=== PATIENT | female | born 1940 | race Caucasian/White ===

== ENCOUNTER 2016-11-12 08:53 | Emergency (ER) | payer MEDICARE, OTHER, MEDICAID ==
--- NOTE | 2016-11-12 09:26 | RAD ---
Indication: Altered mental status. Resolved LEFT side facial droop. History of dementia and prior CVA. Hypertension. Comparison: August 13, 2011 CT. Technique: Noncontrast CT vertex of skull through foramen magnum. Report: Moderately severe prominence of the cerebral sulci and mild prominence of the cerebellar fissures with worsening compared with the prior exam. Extensive encephalomalacia involving the LEFT anterior and middle cerebral artery distributions consistent with an old infarct without significant interval change. 0.7 cm chronic lacunar infarct at the RIGHT thalamus. 1.8 x 1.8 cm chronic lacunar infarct at the LEFT thalamus and posterior limb of the internal capsule. Ex vacuo dilatation of the LEFT lateral ventricle without significant change. Generalized ventriculomegaly commensurate with degree of atrophy. No new region of reed matter white matter obscuration, intra or extra-axial hemorrhage, or mass effect. Unremarkable calvarium and skull base. Clear visualized paranasal sinuses and mastoid air spaces. Negative for scalp hematoma. IMPRESSION: 1. Extensive LEFT hemispheric encephalomalacia related to previous infarct. Additional chronic lacunar infarcts. 2. No compelling new region of reed matter white matter obscuration. Negative for intra or extra-axial hemorrhage or mass effect.
--- NOTE | 2016-11-12 09:27 | RAD ---
Indication: Altered mental status. Comparison: December 01, 2013 Technique: Upright AP 0905 hours Report: Suboptimal inspiration with resulting minimal crowding of the pulmonary markings. No alveolar consolidation, focal pulmonary lesion, pleural effusion, pneumothorax. The heart, pulmonary vasculature, and mediastinal contours are unremarkable. IMPRESSION: Low lung volumes with mild subsegmental atelectasis.
[2016-11-12 09:36] LABS: Hematocrit 44 % (35-47); Hemoglobin 14.1 g/dl (12.0-16.0); Mean Corpuscular HGB Conc 32 g/dl (31-36); Mean Corpuscular Hemoglobin 28 pg (27-31); Mean Corpuscular Volume 87 fL (80-97); Mean Platelet Volume 12 um3 (7.4-10.4); Red Blood Count 5.06 10^6/ul (4.0-5.4); Red Cell Distribution Width 13 % (10.5-15); White Blood Count 7.2 10^3/ul (3.5-10.8)
[2016-11-12 09:52] LABS: Albumin 3.6 g/dL (3.2-5.2); BUN/Creatinine Ratio 32.7 (8-20); Calcium 9.1 mg/dL (8.6-10.3); EGFR African American 159.2 (>60); EGFR Non-African American 123.8 (>60); Globulin 2.9 g/dL (2-4); Potassium 3.5 mmol/L (3.5-5.0); Total Bilirubin 0.2 mg/dL (0.2-1.0); Total Protein 6.5 g/dL (6.4-8.9)
[2016-11-12 09:54] LABS: Add Diff/Slide Review? Slide Review Added; Comments Flag Yes
[2016-11-12 11:18] LABS: Urine Bacteria 2+ (Absent); Urine Bilirubin Negative (Negative); Urine Glucose 3+(>=500 mg/dL) (Negative); Urine Nitrite Negative (Negative)
[2016-11-12 14:14] VITALS: BP 154/75
--- NOTE | 2016-11-12 17:58 | ED ---
Sydnie Rosario SooYoung, scribed for Noble Zaragoza MD on 11/12/16 at 0901 . Neurological HPI - HPI Summary HPI Summary: A 75 y/o F BRIAN presents to ED after possible stroke onset this AM. According to EMS, last known well time approx 0700. EMS states pt had a L-sided facial droop and caretakers at facility told them that she is not at her baseline, and is acting "odd." Upon arrival in ED, no obvious facial droop. Pert PMHx: TIA/ CVA. - History of Current Complaint Stated Complaint: AMS Time Seen by Provider: 11/12/16 08:53 Hx Obtained From: Patient, EMS, Medical Records Onset/Duration: Started hours ago, Still Present Timing: Constant - Allergy/Home Medications Allergies/Adverse Reactions: Allergies Allergy/AdvReac Type Severity Reaction Status Date / Time Sulfa Drugs Allergy Mild Headache Verified 11/12/16 10:02 Home Medications: Home Medications Acetaminophen SUPP* [Tylenol Supp*] 650 mg [place] Q4H PRN 11/12/16 [History Confirmed 11/12/16] Acetaminophen TAB* [Tylenol TAB*] 650 mg PO Q4H PRN 11/12/16 [History Confirmed 11/12/16] Atorvastatin* [Lipitor*] 10 mg PO BEDTIME 11/12/16 [History Confirmed 11/12/16] Bisacodyl SUPP* [Dulcolax Supp*] 10 mg [place] DAILY PRN 11/12/16 [History Confirmed 11/12/16] Brinzolamide 1% OPHTH BRIANNA(NF) [Azopt 1% OPHTH BRIANNA(NF)] 1 drop BOTH EYES BID [History Confirmed 11/12/16] Budesonide NEB* [Pulmicort NEB*] 0.5 mg INH DAILY 11/12/16 [History Confirmed ] Cholecalciferol [Vitamin D3] 50,000 unit PO MONTHLY 11/12/16 [History Confirmed 11/12/16] Dipyridamole/Aspirin 25/200* [Aggrenox 25/200*] 1 cap.er PO BID 11/12/16 [ History Confirmed 11/12/16] Divalproex Sprinkle CAP* [Depakote Sprinkle CAP*] 250 mg PO BID 11/12/16 [ History Confirmed 11/12/16] Hydrocodone/Acetamin 10/325(NF [[place] 10/325 (NF)] 1 tab PO BID 11/12/16 [ History Confirmed 11/12/16] Hydrocodone/Acetamin 10/325(NF [[place] 10/325 (NF)] 1 tab PO Q4H PRN 11/12/16 [ History Confirmed 11/12/16] Latanoprost 0.005%* [Xalatan 0.005%*] 1 drop BOTH EYES QPM 11/12/16 [History Confirmed 11/12/16] Losartan TAB* [Cozaar TAB*] 100 mg PO DAILY 11/12/16 [History Confirmed 11/12/16 ] Magnesium Hydroxide LIQ* [Milk of Magnesia LIQ*] 30 ml PO DAILY PRN 11/12/16 [ History Confirmed 11/12/16] Mirtazapine TAB* [Remeron TAB*] 15 mg PO BEDTIME 11/12/16 [History Confirmed ] Omeprazole CAP* [Prilosec CAP* 20 MG] 20 mg PO BID 11/12/16 [History Confirmed 11/12/16] Omeprazole CAP* [Prilosec CAP* 20 MG] 20 mg PO DAILY 11/12/16 [History Confirmed 11/12/16] Phenytoin SUSP(*) [Dilantin SUSP(*)] 300 mg PO BEDTIME 11/12/16 [History Confirmed 11/12/16] Polyethylene Glycol 3350* [Miralax*] 17 gm PO BID 11/12/16 [History Confirmed ] Sennosides-Docusate Sodium [Senokot S] 1 tab PO BID PRN 11/12/16 [History Confirmed 11/12/16] Sertraline* [Zoloft*] 125 mg PO DAILY 11/12/16 [History Confirmed 11/12/16] amLODIPine TAB* [Norvasc TAB*] 2.5 mg PO BEDTIME 11/12/16 [History Confirmed ] metFORMIN* [Glucophage 500 MG TAB *] 500 mg PO BID 11/12/16 [History Confirmed 11/12/16] PMH/Surg Hx/FS Hx/Imm Hx Previously Healthy: No Endocrine/Hematology History: Reports: Hx Diabetes Cardiovascular History: Reports: Hx Hypertension Respiratory History: Reports: Hx Asthma, Hx Chronic Bronchitis, Hx Pneumonia GI History: Reports: Other GI Disorders - reflux History: Reports: Other Problems/Disorders - recent UTI Musculoskeletal History: Reports: Hx Back Problems, Other Musculoskeletal History - osteo-arthritis, L ankle surgery x3, "back problems" Sensory History: Reports: Hx Contacts or Glasses, Hx Glaucoma Opthamlomology History: Reports: Hx Contacts or Glasses, Hx Glaucoma Neurological History: Reports: Hx Seizures, Other Neuro Impairments/Disorders - lasik surgery for cataracts and glaucoma - Surgical History Surgery Procedure, Year, and Place: right ankle 3 surgeries 1999, 2000, 2003 [place]. appemdectomy. hysterectomy 1973 - Family History Known Family History: Positive: Cardiac Disease, Diabetes, Other - pos: [place] - Social History Occupation: Retired Lives: Assisted Living Alcohol Use: None Substance Use Type: Reports: None Type: Cigarettes Length of Time of Smoking/Using Tobacco: 20 years Have You Smoked in the Last Year: No Review of Systems Negative: Fever Neurological: Other - pos: activing "odd", L facial droop according to EMS All Other Systems Reviewed And Are Negative: Yes Physical Exam Vital Signs On Initial Exam: Initial Vitals Temp Pulse Resp BP Pulse Ox 98.4 F 89 18 171/92 96 11/12/16 09:07 11/12/16 09:07 11/12/16 09:07 11/12/16 09:07 11/12/16 09:07 Diagnostics - Vital Signs Vital Signs Temp Pulse Resp BP Pulse Ox 11/12/16 14:25 98.2 F 11/12/16 14:00 78 13 154/75 98 11/12/16 13:30 79 14 170/76 97 11/12/16 13:00 78 13 157/80 98 11/12/16 12:30 79 14 171/77 97 11/12/16 12:00 80 13 170/83 98 11/12/16 11:30 80 13 170/85 98 11/12/16 11:00 81 15 173/80 97 11/12/16 10:30 82 14 170/85 93 11/12/16 10:00 84 13 175/91 94 11/12/16 09:30 86 13 169/89 95 11/12/16 09:22 87 15 171/91 96 11/12/16 09:13 90 17 96 11/12/16 09:07 98.4 F 89 18 171/92 96 - Laboratory Lab Results: Lab Results 11/12/16 11/12/16 11/12/16 Range/Units 09:22 09:25 09:25 WBC 7.2 (3.5-10.8) 10^3/ul RBC 5.06 (4.0-5.4) 10^6/ul Hgb 14.1 (12.0-16.0) g/dl Hct 44 (35-47) % MCV 87 (80-97) fL MCH 28 (27-31) pg MCHC 32 (31-36) g/dl RDW 13 (10.5-15) % Plt Count 93 L (150-450) 10^3/ul MPV 12 H (7.4-10.4) um3 Neut % (Auto) 54.6 (38-83) % Lymph % (Auto) 29.9 (25-47) % Cross % (Auto) 13.5 H (1-9) % Eos % (Auto) 1.4 (0-6) % Baso % (Auto) 0.6 (0-2) % Absolute Neuts (auto) 3.9 (1.5-7.7) 10^3/ul Absolute Lymphs (auto) 2.2 (1.0-4.8) 10^3/ul Absolute Monos (auto) 1.0 H (0-0.8) 10^3/ul Absolute Eos (auto) 0.1 (0-0.6) 10^3/ul Absolute Basos (auto) 0 (0-0.2) 10^3/ul Absolute Nucleated RBC 0.01 10^3/ul Nucleated RBC % 0.1 Hem Pathologist Commnt Pending INR (Anticoag Therapy) 1.11 (0.89-1.11) Sodium (133-145) mmol/L Potassium (3.5-5.0) mmol/L Chloride (101-111) mmol/L Carbon Dioxide (22-32) mmol/L Anion Gap (2-11) mmol/L BUN (6-24) mg/dL Creatinine (0.51-0.95) mg/dL Est GFR ( Amer) (>60) Est GFR (Non-Af Amer) (>60) BUN/Creatinine Ratio (8-20) Glucose (70-100) mg/dL POC Glucose (mg/dL) 423 H* (74-106) mg/dL Lactic Acid (0.5-2.0) mmol/L Calcium (8.6-10.3) mg/dL Total Bilirubin (0.2-1.0) mg/dL AST (13-39) U/L ALT (7-52) U/L Alkaline Phosphatase (34-104) U/L Troponin I (<0.04) ng/mL Total Protein (6.4-8.9) g/dL Albumin (3.2-5.2) g/dL Globulin (2-4) g/dL Albumin/Globulin Ratio (1-3) Urine Color Urine Appearance Urine pH (5-9) Ur Specific [place] (1.010-1.030) Urine Protein (Negative) Urine Ketones (Negative) Urine Blood (Negative) Urine Nitrate (Negative) Urine Bilirubin (Negative) Urine Urobilinogen (Negative) Ur Leukocyte Esterase (Negative) Urine WBC (Auto) (Absent) Urine RBC (Auto) (Absent) Ur Squamous Epith Cells (Absent) Urine Bacteria (Absent) Urine Glucose (Negative) 11/12/16 11/12/16 11/12/16 Range/Units 09:25 09:25 10:50 WBC (3.5-10.8) 10^3/ul RBC (4.0-5.4) 10^6/ul Hgb (12.0-16.0) g/dl Hct (35-47) % MCV (80-97) fL MCH (27-31) pg MCHC (31-36) g/dl RDW (10.5-15) % Plt Count (150-450) 10^3/ul MPV (7.4-10.4) um3 Neut % (Auto) (38-83) % Lymph % (Auto) (25-47) % Cross % (Auto) (1-9) % Eos % (Auto) (0-6) % Baso % (Auto) (0-2) % Absolute Neuts (auto) (1.5-7.7) 10^3/ul Absolute Lymphs (auto) (1.0-4.8) 10^3/ul Absolute Monos (auto) (0-0.8) 10^3/ul Absolute Eos (auto) (0-0.6) 10^3/ul Absolute Basos (auto) (0-0.2) 10^3/ul Absolute Nucleated RBC 10^3/ul Nucleated RBC % Hem Pathologist Commnt INR (Anticoag Therapy) (0.89-1.11) Sodium 142 (133-145) mmol/L Potassium 3.5 (3.5-5.0) mmol/L Chloride 104 (101-111) mmol/L Carbon Dioxide 29 (22-32) mmol/L Anion Gap 9 (2-11) mmol/L BUN 16 (6-24) mg/dL Creatinine 0.49 L (0.51-0.95) mg/dL Est GFR ( Amer) 159.2 (>60) Est GFR (Non-Af Amer) 123.8 (>60) BUN/Creatinine Ratio 32.7 H (8-20) Glucose 407 H (70-100) mg/dL POC Glucose (mg/dL) (74-106) mg/dL Lactic Acid 1.1 (0.5-2.0) mmol/L Calcium 9.1 (8.6-10.3) mg/dL Total Bilirubin 0.20 (0.2-1.0) mg/dL AST 10 L (13-39) U/L ALT 9 (7-52) U/L Alkaline Phosphatase 73 (34-104) U/L Troponin I 0.00 (<0.04) ng/mL Total Protein 6.5 (6.4-8.9) g/dL Albumin 3.6 (3.2-5.2) g/dL Globulin 2.9 (2-4) g/dL Albumin/Globulin Ratio 1.2 (1-3) Urine Color Yellow Urine Appearance Cloudy Urine pH 5.0 (5-9) Ur Specific [place] 1.029 (1.010-1.030) Urine Protein 2+(100 mg/dl) H (Negative) Urine Ketones 1+ H (Negative) Urine Blood 1+ H (Negative) Urine Nitrate Negative (Negative) Urine Bilirubin Negative (Negative) Urine Urobilinogen Negative (Negative) Ur Leukocyte Esterase 3+ H (Negative) Urine WBC (Auto) 3+(>20/hpf) H (Absent) Urine RBC (Auto) 3+(>10/hpf) H (Absent) Ur Squamous Epith Cells Present H (Absent) Urine Bacteria 2+ H (Absent) Urine Glucose 3+(>=500 mg/dl) H (Negative) Result Diagrams: 11/12/16 09:25 11/12/16 09:25 Lab Statement: Any lab studies that have been ordered have been reviewed, and results considered in the medical decision making process. - Radiology CXR Xray Interpretation: Positive (See Comments) - IMPRESSION: Low lung volumes with mild subsegmental atelectasis. Radiology Interpretation Completed By: Radiologist - CT Brain CT CT Interpretation: Positive (See Comments) CT Interpretation Completed By: Radiologist - IMPRESSION: 1. Extensive LEFT hemispheric encephalomalacia related to previous infarct. Additional chronic lacunar infarcts. 2. No compelling new region of reed matter white matter obscuration. Negative for intra or extra-axial hemorrhage or mass effect. - EKG 0922 Cardiac Rate: NL EKG Rhythm: Sinus Rhythm Course/Dx - Course Course Of Treatment: Dede Wasserman was reported to have had a left facial droop at the skilled nursing. She did not have any left-sided findings on neuro exam when she presented here and her W/U showed only an isolated high glucose and a likely UTI. She was D/C'd back to the [facility] to F/U with her PMD. She remained pleasant and nontoxic here. - Diagnoses Provider Diagnoses: UTI (urinary tract infection) - Physician Notifications Discussed Care of Patient With: Dr. Lobo, neuro; is OK with D/C pt Time Discussed With Above Provider: 11:47 Discharge - Discharge Plan Condition: Stable Disposition: HOME Prescriptions: Ciprofloxacin TAB* [Cipro Tab*] 500 mg PO BID #20 tab Patient Education Materials: Ciprofloxacin (By mouth) Referrals: David Jacob MD [Primary Care Provider] - The documentation as recorded by the Sydnie sr SooYoung accurately reflects the service I personally performed and the decisions made by me, Noble Zaragoza MD.
--- NOTE | 2016-11-14 08:35 | PN ---
Progress Note - Progress Note Note: urine culture preliminary grew e. coli patient placed on cipro in ED nothing further at this time will await sensitivities.
== END 2016-11-12 14:25 | disposition home or self-care (01) ==
LOC: ED 08:53
DX: N39.0 Urinary tract infection, site not specified (principal); Z86.73 Personal history of transient ischemic attack (TIA), and cerebral infarction without residual deficits; Z88.2 Allergy status to sulfonamides
CPT/HCPCS: 36415; 70450; 71010; 80053; 81003; 81015; 83605; 84484; 85025; 85060; 85610; 87077; 87086; 87186; 99283

== ENCOUNTER 2016-11-20 12:44 | Emergency (ER) | payer MEDICARE, OTHER, MEDICAID ==
[2016-11-20 14:08] LABS: Hematocrit 44 % (35-47); Hemoglobin 13.8 g/dl (12.0-16.0); Mean Corpuscular HGB Conc 31 g/dl (31-36); Mean Corpuscular Hemoglobin 28 pg (27-31); Mean Corpuscular Volume 88 fL (80-97); Mean Platelet Volume 12 um3 (7.4-10.4); Red Blood Count 4.99 10^6/ul (4.0-5.4); Red Cell Distribution Width 13 % (10.5-15)
[2016-11-20 14:09] LABS: Add Diff/Slide Review? Slide Review Added; Comments Flag Yes
[2016-11-20] MEDS ORDERED: NS 0.9% 1000 ML* 1,000 ML IV ONE (14:14)
[2016-11-20 14:37] LABS: Platelet Morphology Large
[2016-11-20 14:39] LABS: RBC Morphology Normal (Normal)
[2016-11-20 14:43] LABS: Albumin 3.6 g/dL (3.2-5.2); BUN/Creatinine Ratio 36.6 (8-20); Calcium 9.3 mg/dL (8.6-10.3); EGFR Non-African American 151.6 (>60); Globulin 2.7 g/dL (2-4); Potassium 3.6 mmol/L (3.5-5.0); Total Bilirubin 0.3 mg/dL (0.2-1.0); Total Protein 6.3 g/dL (6.4-8.9)
--- NOTE | 2016-11-20 14:59 | RAD ---
HISTORY: Patient is, difficulty swallowing COMPARISONS: CTA dated June 25, 2006 TECHNIQUE: Multiple contiguous axial CT scans were obtained of the neck without intravenous contrast, with coronal and sagittal multiplanar reformations. FINDINGS: The study is limited by the lack of intravenous contrast. This limits evaluation of the solid organs and vasculature. This also reduces sensitivity for detection of abscess BRAIN AND ORBITS: There is left frontoparietal encephalomalacia consistent with remote infarct PARANASAL SINUSES: The visualized paranasal sinuses are clear. SALIVARY GLANDS: The parotid glands, submandibular glands, sublingual glands are normal. NASAL CAVITY/NASOPHARYNX: The nasal cavity and nasopharynx are normal. ORAL CAVITY/OROPHARYNX: The oral cavity is obscured by streak artifact from dental amalgam. The visualized oral cavity and oropharynx are unremarkable. LARYNGEAL APPARATUS/HYPOPHARYNX: The laryngeal apparatus and hypopharynx are normal. UPPER AIRWAY/UPPER ESOPHAGUS: The visualized upper airway and esophagus are normal. LUNG APICES: The lung apices are clear. THYROID GLAND: The thyroid gland is normal. LYMPH NODES: There is no lymphadenopathy by size criteria. VASCULATURE: The vasculature is unremarkable. BONES AND SOFT TISSUES: Degenerative changes are noted of the spine OTHER: None. IMPRESSION: THERE IS NO LOCULATED FLUID COLLECTION TO SUGGEST ABSCESS, THOUGH EVALUATION IS LIMITED BY THE LACK OF INTRAVENOUS CONTRAST. OTHERWISE UNREMARKABLE NONCONTRAST CT OF THE NECK
--- NOTE | 2016-11-20 15:23 | RAD ---
HISTORY: Cough COMPARISONS: November 12, 2016 VIEWS: 2: Frontal and lateral views of the chest. FINDINGS: CARDIOMEDIASTINAL SILHOUETTE: The cardiomediastinal silhouette is normal. LEE: The lee are normal. PLEURA: The costophrenic angles are sharp. No pleural abnormalities are noted. LUNG PARENCHYMA: The lung volumes are low. There is linear opacification of the left lung base ABDOMEN: The upper abdomen is clear. There is no subphrenic gas. BONES AND SOFT TISSUES: No bone or soft tissue abnormalities are noted. OTHER: None. IMPRESSION: LOW LUNG VOLUMES WITH LINEAR ATELECTASIS OF THE LEFT LUNG BASE
--- NOTE | 2016-11-20 17:12 | ED ---
Odilon Rosario Adam, scribed for Brenda Reich MD on 11/20/16 at 1313 . Headache - HPI Summary HPI Summary: Pt is a 76 year old female presenting with jaw pain. Her daughter states that the pt is seen every 3 months for plaque buildup and that they have become concerned about a possible abscess. She was recently put on abx because of suspected UTI. At Dr. Miller's office today the pt's mouth was reportedly "droopy and puffy" so they became further concerned about a possible abscess. Pt c/o pain on both sides of her jaw. She also presents with a cough and her blood sugar was also higher than normal today. PMHx of CVA with facial droop on the right side. Negative [facility] hx. She denies tobacco/alcohol/drug use. - History Of Current Complaint Stated Complaint: JAW PAIN Time Seen by Provider: 11/20/16 13:01 Hx Obtained From: Patient, Family/Outdoor Landscape [employer] - Daughter Onset/Duration: Gradual Onset, Started days ago, Still Present Initially Headache Was: Moderate Currently Pain Is: Moderate Timing: Constant Location of Headache: Other: - Jaw Aggravating Factor: Nothing Allevating Factors: Nothing Associated Signs And Symptoms: Negative - Allergies/Home Medications Allergies/Adverse Reactions: Allergies Allergy/AdvReac Type Severity Reaction Status Date / Time Sulfa Drugs Allergy Mild Headache Verified 11/12/16 10:02 PMH/Surg Hx/FS Hx/Imm Hx Endocrine/Hematology History: Reports: Hx Diabetes Cardiovascular History: Reports: Hx Hypertension Respiratory History: Reports: Hx Asthma, Hx Chronic Bronchitis, Hx Pneumonia GI History: Reports: Other GI Disorders - reflux History: Reports: Other Problems/Disorders - recent UTI Musculoskeletal History: Reports: Hx Back Problems, Other Musculoskeletal History - osteo-arthritis, L ankle surgery x3, "back problems" Sensory History: Reports: Hx Contacts or Glasses, Hx Glaucoma Opthamlomology History: Reports: Hx Contacts or Glasses, Hx Glaucoma Neurological History: Reports: Hx Seizures, Other Neuro Impairments/Disorders - lasik surgery for cataracts and glaucoma - Surgical History Surgery Procedure, Year, and Place: right ankle 3 surgeries 1999, 2000, 2003 [place]. appemdectomy. hysterectomy 1974 Infectious Disease History: Denies: Traveled Outside the [place] in Last 30 Days - Family History Known Family History: Positive: Cardiac Disease, Diabetes, Other - pos: [place] - Social History Occupation: Retired Lives: Alone Alcohol Use: None Hx Substance Use: No Substance Use Type: Reports: None Hx Tobacco Use: No Smoking Status (MU): Never Smoked Tobacco Length of Time of Smoking/Using Tobacco: 20 years Have You Smoked in the Last Year: No Review of Systems Negative: Fever Positive: Cough Positive: Other - Jaw pain All Other Systems Reviewed And Are Negative: Yes Physical Exam Triage Information Reviewed: Yes Vital Signs On Initial Exam: Initial Vitals Temp Pulse Resp BP Pulse Ox 98.4 F 73 16 171/77 95 11/20/16 13:38 11/20/16 13:38 11/20/16 13:38 11/20/16 13:38 11/20/16 13:38 Vital Signs Reviewed: Yes Appearance: Positive: Well-Appearing, No Pain Distress Skin: Positive: Warm, Skin Color Reflects Adequate Perfusion, Dry Eyes: Positive: EOMI, VALERIE ENT: Positive: Pharynx normal, TMs normal Neck: Positive: Supple, Nontender Respiratory/Lung Sounds: Positive: Clear to Auscultation, Breath Sounds Present. Negative: Rales, Rhonchi, Wheezes Cardiovascular: Positive: RRR. Negative: Murmur, Rub Abdomen Description: Positive: Nontender, Soft. Negative: Distended, Guarding Bowel Sounds: Positive: Present Musculoskeletal: Positive: Strength/ROM Intact. Negative: Edema Left, Edema Right Neurological: Positive: Other - Aphasic Psychiatric: Positive: Affect/Mood Appropriate Diagnostics - Vital Signs Vital Signs Temp Pulse Resp BP Pulse Ox 11/20/16 16:00 69 13 100 11/20/16 15:00 74 15 100 11/20/16 14:30 21 140/127 11/20/16 14:00 74 11 160/82 100 11/20/16 13:53 74 15 100 11/20/16 13:52 164/71 11/20/16 13:38 98.4 F 73 16 171/77 95 - Laboratory Lab Results: Lab Results 11/20/16 11/20/16 11/20/16 Range/Units 13:50 13:50 15:14 WBC 14.0 H (3.5-10.8) 10^3/ul RBC 4.99 (4.0-5.4) 10^6/ul Hgb 13.8 (12.0-16.0) g/dl Hct 44 (35-47) % MCV 88 (80-97) fL MCH 28 (27-31) pg MCHC 31 (31-36) g/dl RDW 13 (10.5-15) % Plt Count 122 L (150-450) 10^3/ul MPV 12 H (7.4-10.4) um3 Neut % (Auto) 69.9 (38-83) % Lymph % (Auto) 20.5 L (25-47) % [place] % (Auto) 6.9 (1-9) % Eos % (Auto) 2.1 (0-6) % Baso % (Auto) 0.6 (0-2) % Absolute Neuts (auto) 9.8 H (1.5-7.7) 10^3/ul Absolute Lymphs (auto) 2.9 (1.0-4.8) 10^3/ul Absolute Monos (auto) 1.0 H (0-0.8) 10^3/ul Absolute Eos (auto) 0.3 (0-0.6) 10^3/ul Absolute Basos (auto) 0.1 (0-0.2) 10^3/ul Absolute Nucleated RBC 0.01 10^3/ul Nucleated RBC % 0 Platelet Morphology Large Normal RBC Morphology Normal (Normal) Sodium 141 (133-145) mmol/L Potassium 3.6 (3.5-5.0) mmol/L Chloride 104 (101-111) mmol/L Carbon Dioxide 30 (22-32) mmol/L Anion Gap 7 (2-11) mmol/L BUN 15 (6-24) mg/dL Creatinine 0.41 L (0.51-0.95) mg/dL Est GFR ( Amer) 195.0 (>60) Est GFR (Non-Af Amer) 151.6 (>60) BUN/Creatinine Ratio 36.6 H (8-20) Glucose 281 H (70-100) mg/dL Calcium 9.3 (8.6-10.3) mg/dL Total Bilirubin 0.30 (0.2-1.0) mg/dL AST 7 L (13-39) U/L ALT 7 (7-52) U/L Alkaline Phosphatase 65 (34-104) U/L Total Protein 6.3 L (6.4-8.9) g/dL Albumin 3.6 (3.2-5.2) g/dL Globulin 2.7 (2-4) g/dL Albumin/Globulin Ratio 1.3 (1-3) Influenza A (Rapid) Negative (Negative) Influenza B (Rapid) Negative (Negative) Result Diagrams: 11/20/16 13:50 11/20/16 13:50 Lab Statement: Any lab studies that have been ordered have been reviewed, and results considered in the medical decision making process. - Radiology CXR Radiology Interpretation Completed By: Radiologist - IMPRESSION: LOW LUNG VOLUMES WITH LINEAR ATELECTASIS OF THE LEFT LUNG BASE - CT NECK CT Interpretation Completed By: Radiologist - IMPRESSION: THERE IS NO LOCULATED FLUID COLLECTION TO SUGGEST ABSCESS, THOUGH EVALUATION IS LIMITED BY THE LACK OF INTRAVENOUS CONTRAST. OTHERWISE UNREMARKABLE NONCONTRAST CT OF THE NECK - Additional Comments Diagnostic Additional Comments: Influenza A (Rapid) - Negative Influenza B (Rapid) - Negative Headache Course/Dx - Course Course Of Treatment: talked at length with pts daughter and Dr. Miller about this pt who has been having elevated bs for several weeks. she has also been having increased difficulty with swallowing and Dr. Miller was concerned that there may be a dental abscess or soft tissue neck lesion. CT of soft tissue neck was normal. Oral exam was normal no masses no edema, cxr showed some atelactasis with wbc of 14K talked with daughter and she agreed with a zpack given her wet cough for bronchitis. - Diagnoses Provider Diagnoses: Bronchitis Discharge - Discharge Plan Condition: Stable Disposition: HOME Prescriptions: Azithromyxin ALVINO (NF) [Z-Alvino (Zithromax) 250 mg tabs #6] 2 tab PO .TODAY, THEN 1 DAILY #6 tab Patient Education Materials: Acute Bronchitis (ED) Referrals: David Jacob MD [Primary Care Provider] - Additional Instructions: Follow up with Dr. Jacob this week. The documentation as recorded by the Odilon sr Adam accurately reflects the service I personally performed and the decisions made by me, Brenda Reich MD.
[2016-11-20 17:19] VITALS: BP 138/87
== END 2016-11-20 17:15 | disposition home or self-care (01) ==
LOC: ED 12:44
DX: J40 Bronchitis, not specified as acute or chronic (principal); R05 Cough; R68.84 Jaw pain
CPT/HCPCS: 36415; 70490; 71020; 80053; 85025; 87502; 96360; 99283

== ENCOUNTER → 2018-07-06 14:45 | Emergency (ER) | payer MEDICARE, OTHER, MEDICAID ==
--- NOTE | 2018-07-06 15:42 | ED ---
Lower Extremity - HPI Summary HPI Summary: This patient is a 77 year old female brought in by ambulance to [facility] with a chief complaint of mechanical fall since an hour ago. Patient was found at her long term, where had an unwitnessed fall. Patient was sent to the ED because the nurses state they thought the left leg looked shortened and rotated. Patient expresses no distress with palpation or movement, however. Patient has a hx of severe dementia. Level 5 Caveat: AMS. - History of Current Complaint Chief Complaint: EDExtremityLower Stated Complaint: FALL Time Seen by Provider: 07/06/18 15:26 Hx Obtained From: Family/Regulatory Auditor - retirement, EMS Hx From Patient Unobtainable Due To: Altered Mental Status - Dementia Mechanism Of Injury: Unknown Severity Currently: None Pain Intensity: 0 Pain Scale Used: 0-10 Numeric Aggravating Factor(s): Nothing Alleviating Factor(s): Nothing - Allergies/Home Medications Allergies/Adverse Reactions: Allergies Allergy/AdvReac Type Severity Reaction Status Date / Time MS Sulfa Drugs [Sulfa Drugs] Allergy Mild Headache Verified 11/12/16 10:02 Sulfa (Sulfonamide Allergy Headache Verified 07/06/18 17:36 Antibiotics) PMH/Surg Hx/FS Hx/Imm Hx Previously Healthy: No - Level 5 Caveat: Dementia Endocrine/Hematology History: Reports: Hx Diabetes Cardiovascular History: Reports: Hx Hypertension Respiratory History: Reports: Hx Asthma, Hx Chronic Bronchitis, Hx Pneumonia GI History: Reports: Other GI Disorders - reflux History: Reports: Other Problems/Disorders - recent UTI Musculoskeletal History: Reports: Hx Back Problems, Other Musculoskeletal History - osteo-arthritis, L ankle surgery x3, "back problems" Sensory History: Reports: Hx Contacts or Glasses, Hx Glaucoma Opthamlomology History: Reports: Hx Contacts or Glasses, Hx Glaucoma Neurological History: Reports: Hx Seizures, Other Neuro Impairments/Disorders - lasik surgery for cataracts and glaucoma - Surgical History Surgery Procedure, Year, and Place: right ankle 3 surgeries 1999, 2000, 2003 [place]. appemdectomy. hysterectomy 1974 Infectious Disease History: No Infectious Disease History: Denies: Traveled Outside the [place] in Last 30 Days - Family History Known Family History: Positive: Cardiac Disease, Diabetes, Other - pos: [place] - Social History Alcohol Use: None Hx Substance Use: No Substance Use Type: Reports: None Hx Tobacco Use: No Smoking Status (MU): Never Smoked Tobacco Type: Cigarettes Length of Time of Smoking/Using Tobacco: 20 years Have You Smoked in the Last Year: No Review of Systems Negative: Fever Positive: Other - mechanical fall All Other Systems Reviewed And Are Negative: No - Comments Additional Review of Systems Comments: ROS Limited due to Level 5 Caveat: AMS/Dementia Physical Exam - Summary Physical Exam Summary: VITAL SIGNS: Reviewed. GENERAL: Patient is a well-developed and nourished female who is lying comfortable in the stretcher. Patient is not in any acute respiratory distress. HEAD AND FACE: No signs of trauma. No ecchymosis, hematomas or skull depressions. No sinus tenderness. NECK: Supple, trachea is midline, no adenopathy, no JVD, no carotid bruit, no c- spine tenderness, neck with full ROM. CHEST: Symmetric, no tenderness at palpation LUNGS: Clear to auscultation bilaterally. No wheezing or crackles. CVS: Regular rate and rhythm, S1 and S2 present, no murmurs or gallops appreciated. ABDOMEN: Soft, non-tender. No signs of distention. EXTREMITIES: Right sided weakness. Contraction of the right hand, secondary to stroke. Right foot drop, also secondary to stroke. NEURO: Alert, but not oriented. SKIN: Dry and warm Triage Information Reviewed: Yes Vital Signs On Initial Exam: Initial Vitals Pulse Resp Pulse Ox 76 21 97 07/06/18 15:05 07/06/18 15:05 07/06/18 15:05 Vital Signs Reviewed: Yes Completion Of Physical Exam Limited Due To: Dementia, Altered Mental Status, Level 5 Diagnostics - Vital Signs Vital Signs Temp Pulse Resp BP Pulse Ox 07/06/18 15:06 98.9 F 74 21 181/93 100 07/06/18 15:05 76 21 97 - Laboratory Lab Statement: Any lab studies that have been ordered have been reviewed, and results considered in the medical decision making process. - Radiology Hip/Pelvis XR Radiology Interpretation Completed By: Radiologist Summary of Radiographic Findings: Hip/Pelvis XR reveals, per radiologist, IMPRESSION: OSTEOPENIA. PERIPHERAL ARTERIAL DISEASE. NO RADIOGRAPHIC EVIDENCE FOR HIP FRACTURE. X-RAYS MAY BE NEGATIVE WITH NONDISPLACED HIP FRACTURE, IF THERE IS PERSISTENT CLINICAL CONCERN, RECOMMEND CONSIDERATION OF MRI. IN THE SETTING OF CONTRAINDICATION TO MRI OR LIMITATION IN EMERGENT ACCESS TO MRI, CT WOULD BE SUGGESTED. ED physician has reviewed this radiology report. Lower Extremity Course/Dx - Course Assessment/Plan: This patient is a 77 year old female brought in by ambulance to [facility] with a chief complaint of mechanical fall since an hour ago. Patient was found at her long term, where had an unwitnessed fall. Patient was sent to the ED because the nurses state they thought the left leg looked shortened and rotated. Patient expresses no distress with palpation or movement, however. Patient has a hx of severe dementia. X-ray of the hip and left hip impression: Osteopenia. Peripheral arterial disease. No radiographic evidence for hip fracture. In the ED course I moved the patient in both hips knees and ankles and there is no grimaces of pain. The patient continues to be alert and oriented. There is no hematomas, there are no ecchymosis, no deformities. Therefore the patient will be discharged to the long term with follow-up with primary care physician. - Diagnoses Differential Diagnosis/HQI/PQRI: Positive: Dislocation, Fracture (Closed), Sprain, Strain Provider Diagnoses: Fall, Hip pain Discharge - Sign-Out/Discharge Documenting (check all that apply): Patient Departure - Discharge Plan Condition: Stable Disposition: HOME Patient Education Materials: Fall Prevention for Older Adults (ED), Hip Pain ( ED) Referrals: David Jacob MD [Primary Care Provider] - 3 Days Additional Instructions: Return to the ED for any new or worsening symptoms. - Billing Disposition and Condition Condition: STABLE Disposition: Home - Attestation Statements Document Initiated by Scribe: Yes Documenting Scribe: Archie Adrian Provider For Whom Sully is Documenting (Include Credential): Elvin Mosnalve MD Scribe Attestation: Archie Rosario scribed for Elvin Monsalve MD on 07/06/18 at 1854. Scribe Documentation Reviewed: Yes Provider Attestation: The documentation as recorded by the Archie sr accurately reflects the service I personally performed and the decisions made by , Elvin Monsalve MD
[2018-07-06 18:37] VITALS: BP 192/90
== END | disposition home or self-care (01) ==
LOC: ED 14:45
DX: M25.559 Pain in unspecified hip (principal); R41.82 Altered mental status, unspecified; I10 Essential (primary) hypertension; E11.9 Type 2 diabetes mellitus without complications; W19.XXXA Unspecified fall, initial encounter; Y92.9 Unspecified place or not applicable
CPT/HCPCS: 99283